=== PATIENT | female | born 1945 | race Caucasian/White ===

== ENCOUNTER 2023-06-26 18:36 | Inpatient (IN) | payer MEDICARE, OTHER ==
[~2023-06-26] VITALS: Ht 157.5 cm; Wt 79.8 kg
[2023-06-26] MEDS ORDERED: IBUPROFEN 400 MG TABLET ONE (19:13)
[2023-06-26] MEDS ORDERED: ACETAMINOPHEN ES 500 MG TABLET ONE (19:13)
[2023-06-26] MEDS: ACETAMINOPHEN ES 500 MG TABLET PO ONE (19:15)
[2023-06-26] MEDS: IBUPROFEN 400 MG TABLET PO ONE (19:16)
[2023-06-26] MEDS ORDERED: OLAN2.5T3 PO (19:21)
[2023-06-26] MEDS ORDERED: ERGO500040 PO (19:21)
[2023-06-26] MEDS ORDERED: FLUT16SP16 BNOSTRILS (19:21)
[2023-06-26] MEDS ORDERED: DIVA125T2 PO (19:21)
[2023-06-26] MEDS ORDERED: HYDR-501 PO (19:21)
[2023-06-26] MEDS ORDERED: ATEN50TA PO (19:21)
[2023-06-26] MEDS ORDERED: GABA-532 PO (19:21)
[2023-06-26] MEDS ORDERED: DONE5TAB34 PO (19:21)
[2023-06-26] MEDS ORDERED: SIMV-49 PO (19:21)
[2023-06-26] MEDS ORDERED: OLAN5TAB3 PO (19:21)
[2023-06-26] MEDS ORDERED: LORA10CA PO (19:21)
[2023-06-26] MEDS ORDERED: SERT100T PO (19:21)
[2023-06-26] MEDS ORDERED: NYST5ORA PO (19:21)
[2023-06-26] MEDS ORDERED: AMLO1CAP5 PO (19:21)
[2023-06-26 22:30] VITALS: BP 117/43; TEMP 98.2; O2SAT 95
[2023-06-26] MEDS ORDERED: TEMAZEPAM 7.5 MG CAPSULE PO PRN (23:00)
[2023-06-26] MEDS ORDERED: MAG HYDROX/AL HYDROX/SIMETH 30 ML LIQUID UDC PO PRN (23:00)
[2023-06-26] MEDS ORDERED: MAGNESIUM HYDROXIDE 30 ML LIQUID UDC PO PRN (23:00)
[2023-06-26] MEDS: BLOOD SUGAR DIAGNOSTIC 1 EACH STRIP VI ONE (23:38)
[2023-06-26] MEDS: CLONAZEPAM 0.5 MG TABLET PO PRN (23:38)
[2023-06-27 08:56] VITALS: BP 153/67; TEMP 97.8; O2SAT 97
[2023-06-27] MEDS: DIVALPROEX 125 MG TABLET.DR PO SCH (12:40)
[2023-06-27] MEDS: SERTRALINE HCL 100 MG TABLET PO SCH (12:40)
[2023-06-27] MEDS: OLANZAPINE 2.5 MG TABLET PO SCH (16:20)
[2023-06-27 16:34] VITALS: BP 116/93; TEMP 97.9; O2SAT 98
[2023-06-27] MEDS ORDERED: ERGOCALCIFEROL 50,000 UNIT CAPSULE PO SCH (19:15)
[2023-06-27] MEDS: hydrOXYzine HCL 25 MG TABLET PO SCH (19:15)
[2023-06-27] MEDS: SIMVASTATIN 40 MG TABLET PO SCH (21:20)
[2023-06-28] MEDS ORDERED: hydrOXYzine HCL 10 MG TABLET PO PRN (06:45)
[2023-06-28 08:27] VITALS: BP 161/70; TEMP 98.4; O2SAT 98
[2023-06-28] MEDS: GABAPENTIN 100 MG CAPSULE PO SCH (08:35)
[2023-06-28] MEDS: DONEPEZIL 5 MG TABLET PO SCH (08:35)
[2023-06-28] MEDS ORDERED: AMLODIPINE 5 MG TABLET PO SCH (10:00)
[2023-06-28] MEDS ORDERED: BENAZEPRIL HCL 10 MG TABLET PO SCH (10:00)
[2023-06-28] MEDS: BENAZEPRIL HCL 10 MG TABLET PO SCH (10:10)
[2023-06-28] MEDS ORDERED: BENAZEPRIL HCL 10 MG TABLET PO ONE (10:30)
[2023-06-28] MEDS ORDERED: ERGOCALCIFEROL 50,000 UNIT CAPSULE PO SCH (12:29)
[2023-06-28] MEDS: FLUTICASONE PROP NASAL SPRAY 16 GM BOTTLE NS SCH (12:44)
[2023-06-28 15:57] VITALS: BP 106/61; TEMP 98; O2SAT 98
[2023-06-28 19:48] VITALS: BP 117/71; TEMP 98.1; O2SAT 94
[2023-06-29 07:30] VITALS: BP 120/58; TEMP 97.5; O2SAT 95
[2023-06-29 08:00] LABS: BASOPHILS % (AUTO) 0.9 % (0.0-2.0); DIFFERENTIAL COMMENT 0; EOSINOPHILS # (AUTO) 0.1 K/uL (0.0-0.7); HEMATOCRIT 38.8 % (31.2-41.9); HEMOGLOBIN 13.4 g/dL (10.9-14.3); LYMPHOCYTES # (AUTO) 0.9 K/uL (0.8-4.8); LYMPHOCYTES % (AUTO) 20.7 % (20.5-51.5); MEAN CORPUSCULAR HEMOGLOBIN 30.5 uug (24.7-32.8); MEAN CORPUSCULAR HGB CONC 35 g/dL (32.3-35.6); MONOCYTES # (AUTO) 0.3 K/uL (0.1-1.30); MONOCYTES % (AUTO) 6.1 % (0.0-11.0); NEUTROPHILS # (AUTO) 3.2 K/uL (1.8-8.9); NEUTROPHILS % (AUTO) 70.3 % (38.5-71.5); PLATELET COUNT (AUTO) 179 K/uL (179-408); RED BLOOD CELL COUNT(AUTO) 4.41 MIL/uL (3.63-4.92); RED CELL DISTRIBUTION WIDTH 15.2 % (12.3-17.7); WHITE BLOOD COUNT (AUTO) 4.5 K/uL (3.8-11.8)
[2023-06-29 08:37] LABS: THYROID STIMULATING HORMONE 2.057 mIU/mL (0.358-3.740)
[2023-06-29] MEDS: AMLODIPINE 5 MG TABLET PO SCH (08:49)
[2023-06-29] MEDS: BENAZEPRIL HCL 10 MG TABLET PO SCH (08:51)
[2023-06-29 08:58] LABS: ALBUMIN 3.5 g/dL (3.4-5.0); BILIRUBIN,TOTAL 0.4 mg/dL (0.2-1.0); CALCIUM 8.6 mg/dL (8.5-10.1); CREATININE 0.6 mg/dL (0.6-1.3); MAGNESIUM 2.3 mg/dL (1.8-2.4); PHOSPHOROUS 4.4 mg/dL (2.5-4.9); POTASSIUM 4.5 mmol/L (3.5-5.1); TOTAL PROTEIN, SERUM 6.2 g/dL (6.4-8.2)
[2023-06-29] MEDS ORDERED: BENAZEPRIL HCL 20 MG TABLET PO SCH (09:00)
[2023-06-29 17:00] VITALS: BP 117/73; TEMP 97.6; O2SAT 96
[2023-06-29 20:00] VITALS: BP 148/84; TEMP 98.3; O2SAT 94
[2023-06-29] MEDS: MIRTAZAPINE 15 MG TABLET PO SCH (20:50)
[2023-06-29] MEDS: GABAPENTIN 100 MG CAPSULE PO SCH (20:50)
[2023-06-29] MEDS: ATORVASTATIN 20 MG TABLET PO SCH (20:51)
[2023-06-29] MEDS ORDERED: SIMVASTATIN 40 MG TABLET PO SCH (21:00)
[2023-06-29] MEDS ORDERED: GABAPENTIN 100 MG CAPSULE PO SCH (21:00)
[2023-06-30 08:06] VITALS: BP 150/71; TEMP 98.4; O2SAT 98
[2023-06-30] MEDS ORDERED: SERTRALINE HCL 100 MG TABLET PO SCH (09:00)
[2023-06-30] MEDS ORDERED: SERTRALINE HCL 50 MG TABLET PO SCH (09:00)
[2023-06-30] MEDS: SERTRALINE HCL 50 MG TABLET PO SCH (09:40)
[2023-06-30] MEDS: ENSURE WITH FIBER 237 ML LIQUID (CHOCOLATE) PO SCH (11:15)
[2023-06-30 15:18] VITALS: BP 113/58; TEMP 98.2; O2SAT 98
[2023-06-30 20:00] VITALS: BP 152/88; TEMP 97.7; O2SAT 93
[2023-06-30 22:26] LABS: *BILIRUBIN,URIN NEGATIVE (NEGATIVE); *BLOOD, URINE NEGATIVE (NEGATIVE); *CLARITY,URINE CLEAR (CLEAR); *COLOR,URINE YELLOW (YELLOW); *KETONES,URINE NEGATIVE (NEGATIVE); *PROTEIN,URINE NEGATIVE (NEGATIVE); *UROBILINOGEN,URINE 0.2 E.U./dl (NORMAL); LEUKOCYTE ESTERASE ,URINE TRACE (NEGATIVE); NITRITE, URINE NEGATIVE (NEGATIVE); UGLUCOSE NEGATIVE (NEGATIVE)
[2023-06-30 23:43] LABS: BACTERIA,URINE FEW /HPF (NONE SEEN); RBC,URINE 0-3 /HPF (0-3); SQUAMOUS EPITHELIAL CELL,UR FEW /HPF (NONE SEEN)
[2023-07-01 08:00] VITALS: BP 124/77; TEMP 98.2; O2SAT 98
[2023-07-01 16:10] VITALS: BP 112/59; TEMP 98; O2SAT 96
[2023-07-01 20:00] VITALS: BP 133/76; TEMP 97.8; O2SAT 93
[2023-07-02 07:30] VITALS: BP 161/100; TEMP 97.5; O2SAT 95
[2023-07-02] MEDS: FLUTICASONE PROP NASAL SPRAY 16 GM BOTTLE NS SCH (08:22)
[2023-07-02 16:41] VITALS: BP 100/70; TEMP 97.7; O2SAT 95
[2023-07-02 20:00] VITALS: BP 110/56; TEMP 98.2; O2SAT 96
[2023-07-03 08:51] VITALS: BP 131/80; TEMP 98.2; O2SAT 97
[2023-07-03] MEDS: ERGOCALCIFEROL 50,000 UNIT CAPSULE PO SCH (10:00)
[2023-07-03] MEDS: ACETAMINOPHEN 325 MG TABLET PO PRN (12:08)
[2023-07-03] MEDS: DIVALPROEX 125 MG TABLET.DR PO SCH (12:21)
[2023-07-03 16:50] VITALS: BP 103/64; TEMP 98.1; O2SAT 97
[2023-07-03 19:55] VITALS: BP 118/56; TEMP 98.1; O2SAT 96
[2023-07-03] MEDS: CLOTRIMAZOLE/BETAMET DIPROP CREAM 15 GM TUBE TOP SCH (20:12)
[2023-07-04 08:44] VITALS: BP 134/65; TEMP 98.4; O2SAT 98
[2023-07-04 16:07] VITALS: BP 133/87; TEMP 98.2; O2SAT 98
[2023-07-04] MEDS: hydrOXYzine HCL 10 MG TABLET PO PRN (16:13)
[2023-07-04] MEDS ORDERED: HYDROXYZINE PAMOATE 25 MG CAPSULE PO PRN (17:00)
[2023-07-04 19:58] VITALS: BP 101/71; TEMP 98.2; O2SAT 94
[2023-07-04] MEDS: DIVALPROEX 125 MG TABLET.DR PO SCH (20:34)
[2023-07-04] MEDS: busPIRone 5 MG TABLET PO SCH (20:34)
[2023-07-05 08:05] VITALS: BP 158/62; TEMP 98.2; O2SAT 96
[2023-07-05] MEDS: CYANOCOBALAMIN 1,000 MCG TABLET PO SCH (08:27)
[2023-07-05 15:25] VITALS: BP 116/77; TEMP 98; O2SAT 96
[2023-07-05] MEDS: OLANZAPINE 2.5 MG TABLET PO SCH (18:45)
[2023-07-05] MEDS: OLANZAPINE 5 MG TABLET PO SCH (20:47)
[2023-07-05 22:56] VITALS: BP 139/73; TEMP 98; O2SAT 99
[2023-07-06 13:02] VITALS: BP 159/79; TEMP 97.7; O2SAT 94
[2023-07-06 20:00] VITALS: BP 127/66; TEMP 97.9; O2SAT 93
[2023-07-07] MEDS: CLONAZEPAM 0.5 MG TABLET PO PRN (02:59)
[2023-07-07 08:11] VITALS: BP 102/59; TEMP 98.2; O2SAT 98
[2023-07-07 09:11] VITALS: BP 102/59
== END 2023-07-07 13:15 | disposition home or self-care (01) | DRG 885 ==
LOC: ER 18:39 → GPS 21:30
PROVIDERS: ADMIT Psychiatry & Neurology Psychiatry; ATTEND Internal Medicine
DX: F33.2 Major depressive disorder, recurrent severe without psychotic features (principal); R45.851 Suicidal ideations; F03.A4 Unspecified dementia, mild, with anxiety; Z87.891 Personal history of nicotine dependence; Z79.899 Other long term (current) drug therapy; B00.1 Herpesviral vesicular dermatitis; E78.5 Hyperlipidemia, unspecified; E66.9 Obesity, unspecified; Z68.31 Body mass index [BMI] 31.0-31.9, adult; I10 Essential (primary) hypertension; G62.9 Polyneuropathy, unspecified; Z88.0 Allergy status to penicillin; Z88.2 Allergy status to sulfonamides; K64.4 Residual hemorrhoidal skin tags; H91.93 Unspecified hearing loss, bilateral; G43.909 Migraine, unspecified, not intractable, without status migrainosus; I35.0 Nonrheumatic aortic (valve) stenosis; M15.9 Polyosteoarthritis, unspecified
CPT/HCPCS: 36415; 80164; 82652; 83735; 84100; 84443; 85025; A9150; J3535